=== PATIENT | female | born 1940 | race Caucasian/White ===

== ENCOUNTER 2018-12-29 07:32 | Day surgery (SDC) | payer MEDICARE ==
[2018-12-29] MEDS ORDERED: Lactated Ringers 1,000 ML IV SCH (08:30)
[2018-12-29] MEDS ORDERED: Propofol 200 MG/20 ML SDV ONE (09:16)
[2018-12-29] MEDS ORDERED: fentaNYL 100 MCG/2 ML SDV ONE (09:16)
[2018-12-29 10:53] VITALS: BP 159/58; PULSE 64
--- NOTE | 2018-12-29 11:07 | OR ---
DATE OF PROCEDURE: 12/29/2018 SURGEON: Curt Swan MD PREOPERATIVE DIAGNOSIS: History of colon polyps. POSTOPERATIVE DIAGNOSES: Diverticulosis, small colon polyp 30 cm from the anal verge, history of colon polyps. PROCEDURE: Colonoscopy to the cecum with biopsy resection of small polyp at 30 cm from the anal verge. SURGEON: Curt Swan MD. ANESTHESIA: IV anesthesia with monitored anesthesia care. INDICATION: This 78-year-old white female is referred for a colonoscopy because of a history of colon polyps. She says her last colonoscopic exam was done 5 years ago. I counseled her for the procedure including risks and alternatives, and she gave her informed consent to proceed. DESCRIPTION OF PROCEDURE: The patient was placed in the left lateral decubitus position. IV anesthesia was administered by the Anesthesia Service. Time-out was held. A rectal exam was performed, which was unremarkable. The flexible video Olympus colonoscope was introduced through her anus, up her rectum and out her colon all way to the cecum. Once the cecum was reached, the scope was slowly withdrawn examining the mucosa throughout. En route to the cecum, we did notice a few scattered left-sided diverticula. There was no bleeding or inflammation associated with any of them. The scope was withdrawn slowly from the cecum with no additional lesions noted until we reached 30 cm from the anal verge. Here, a small polyp was seen which was removed with the biopsy forceps. The scope was withdrawn further with no other lesions noted. The scope was retroflexed in the rectum with the distal rectum appearing unremarkable. The scope was straightened and removed. She tolerated the procedure well. Curt Swan MD /[id number]
== END 2018-12-29 10:57 | disposition home or self-care (01) ==
LOC: JP.SDS 07:32
PROVIDERS: ATTEND Surgery
DX: Z12.11 Encounter for screening for malignant neoplasm of colon (principal); D12.5 Benign neoplasm of sigmoid colon; K57.30 Diverticulosis of large intestine without perforation or abscess without bleeding; Z86.010 Personal history of colon polyps; I11.0 Hypertensive heart disease with heart failure; E03.9 Hypothyroidism, unspecified; Z79.82 Long term (current) use of aspirin; Z79.899 Other long term (current) drug therapy; Z91.09 Other allergy status, other than to drugs and biological substances
CPT/HCPCS: 45380; J2704; J3010; J7120; 88305

== ENCOUNTER 2023-07-25 11:40 | Inpatient (IN) | payer MEDICARE ==
[2023-07-25 12:25] LABS: BASE EXCESS VENOUS 1.8 mm/L; BICARBONATE,VENOUS 26.4 mmol/L; CARBOXYHEMOGLOBIN 2.2 % (0.0-1.6); METHEMOGLOBIN 0.7 %; O2 SATURATION VENOUS 60.8; PCO2 VENOUS 43.9 mm/Hg; PH,VENOUS 7.396 (7.350-7.450); PO2 VENOUS 35.5 mm/Hg; TOTAL HEMOGLOBIN 10.5 g/dL (12.0-16.0)
[2023-07-25 12:27] LABS: BASOPHILS ABSOLUTE AUTO 0.05 K/uL (0.00-0.10); BASOPHILS PERCENT AUTO 0.6 % (0.1-1.3); EOSINOPHILS ABSOLUTE AUTO 0.07 K/uL (0.00-0.40); EOSINOPHILS PERCENT AUTO 0.9 % (0.0-5.4); HEMOGLOBIN 9.9 g/dL (11.2-15.5); IMMATURE GRAN PERCENT AUTO 0.2 % (0.0-0.7); LYMPHOCYTES ABSOLUTE AUTO 0.77 K/uL (0.8-3.3); LYMPHOCYTES PERCENT AUTO 9.6 % (11.4-47.7); MEAN CORPUSCULAR HEMOGLOBIN 26.2 pg (31.6-35.5); MEAN CORPUSCULAR HGB CONC 31.9 g/dL (31.6-35.5); MONOCYTES PERCENT AUTO 13.6 % (3.3-12.6); NEUTROPHILS ABSOLUTE AUTO 6.05 K/uL (1.0-7.6); NEUTROPHILS PERCENT AUTO 75.1 % (40.0-78.1); PLATELET COUNT,PLT 290 K/uL (130-375); RED BLOOD CELL COUNT 3.78 M/uL (3.77-5.24); WHITE BLOOD CELL COUNT,WBC 8.1 K/uL (3.2-11.0)
[2023-07-25 12:29] LABS: IMMATURE GRAN ABSOLUTE AUTO 0.02 K/uL (0.00-0.23)
[2023-07-25] MEDS: cefTRIAXone 1 GM in Sodium Chloride 0.9% 50 ML IV ONE (12:46)
[2023-07-25 12:57] LABS: C-REACTIVE PROTEIN 6.43 mg/dL (<0.50); CALCIUM 8.2 mg/dL (8.5-10.1); CREATININE 0.7 mg/dL (0.6-1.0); EST CRCL DRUG DOSING (CG) 53.02 mL/min; POTASSIUM,K 3.8 mmol/L (3.6-5.2)
[2023-07-25 12:57] LABS: A/G RATIO 0.5 (1.2-2.2); ALBUMIN 2.3 g/dL (3.4-5.0); BILIRUBIN DIRECT 0.12 mg/dL (0.0-0.2); BILIRUBIN INDIRECT 0.18; BILIRUBIN TOTAL 0.3 mg/dL (0.2-1.0); PROTEIN TOTAL,TP 6.8 g/dL (6.4-8.2)
[2023-07-25 12:59] LABS: ANION GAP 12.8 mmol/L (5.0-14.0)
[2023-07-25 13:05] LABS: CORONAVIRUS COVID-19 NAA NEGATIVE (NEGATIVE); INFLUENZA A NAA NEGATIVE (NEGATIVE); INFLUENZA B NAA NEGATIVE (NEGATIVE); RESPIRATORY SYNCYTIAL VIR NAA NEGATIVE (NEGATIVE)
[2023-07-25] MEDS ORDERED: Sodium Chloride 0.9% 10 ML Syringe FLUSH PRN (13:37)
[2023-07-25] MEDS: Azithromycin 500 MG in Sodium Chloride 0.9% 250 ML IV ONE (13:55)
[2023-07-25] MEDS: Sodium Chloride 0.9% 10 ML Syringe FLUSH PRN (13:56)
[2023-07-25] MEDS: Iopamidol 755 Mg/ML 100 ML Bottle IV SCH (13:59)
[2023-07-25] MEDS: Sodium Chloride 0.9% 100 ML IV SCH (13:59)
[2023-07-25] MEDS ORDERED: Sennosides/Docusate Sodium 50-8.6 MG Tab PO PRN (17:21)
[2023-07-25] MEDS: Sodium Chloride 0.9% 1,000 ML IV SCH (18:07)
[2023-07-25] MEDS: Albuterol/Ipratropium 3.0-0.5 MG/3 ML Neb Soln NEB SCH (18:08)
[2023-07-25] MEDS: Formoterol/Mometasone 100-5 MCG 8.8 GM Inhaler IH SCH (20:55)
[2023-07-25] MEDS: Enoxaparin 40 MG/0.4 ML Syringe SUBCUT SCH (20:55)
[2023-07-25] MEDS: atorvaSTATin 10 MG Tab PO SCH (20:55)
[2023-07-25] MEDS: Lactobacillus Rhamnosus GG (Probiotic) Cap PO SCH (20:55)
[2023-07-25] MEDS ORDERED: Non-Formulary Medication 1 Each (Fluticasone/Salmeterol [Advair 100-50] 14 PUFF/DISKUS Dis INH SCH (21:00)
[2023-07-26] MEDS: Cetirizine 10 MG Tab PO SCH (09:20)
[2023-07-26] MEDS: Lisinopril 20 MG Tab PO SCH (09:20)
[2023-07-26] MEDS: Levothyroxine 100 MCG Tab PO SCH (09:20)
[2023-07-26] MEDS: Aspirin 81 MG Tab.Chew PO SCH (09:20)
[2023-07-26] MEDS: Multivitamins with Iron/Calcium/Folic Acid/Minerals Tab PO SCH (09:20)
[2023-07-26] MEDS: Potassium Chloride 20 MEQ Tab.ER PO ONE (11:45)
[2023-07-26] MEDS: Fluticasone NASAL Spray 16 GM Bottle NAS SCH (11:45)
[2023-07-26 13:14] LABS: ANION GAP 10.5 mmol/L (5.0-14.0); CREATININE 0.7 mg/dL (0.6-1.0); EST CRCL DRUG DOSING (CG) 53.02 mL/min; POTASSIUM,K 3.5 mmol/L (3.6-5.2)
[2023-07-26 13:15] LABS: HEMATOCRIT 29.8 % (34.3-46.0); HEMOGLOBIN 9.5 g/dL (11.2-15.5); MEAN CORPUSCULAR HEMOGLOBIN 26.5 pg (31.6-35.5); MEAN CORPUSCULAR HGB CONC 31.9 g/dL (31.6-35.5); RED BLOOD CELL COUNT 3.59 M/uL (3.77-5.24); WHITE BLOOD CELL COUNT,WBC 8.3 K/uL (3.2-11.0)
[2023-07-26] MEDS: Albuterol/Ipratropium 3.0-0.5 MG/3 ML Neb Soln NEB SCH (14:29)
[2023-07-26] MEDS: cefTRIAXone 1 GM in Sodium Chloride 0.9% 50 ML IV SCH (14:44)
[2023-07-26] MEDS: Azithromycin 250 MG Tab PO SCH (16:55)
[2023-07-27 05:27] LABS: BASOPHILS ABSOLUTE AUTO 0.03 K/uL (0.00-0.10); BASOPHILS PERCENT AUTO 0.4 % (0.1-1.3); EOSINOPHILS PERCENT AUTO 1.2 % (0.0-5.4); HEMATOCRIT 28.6 % (34.3-46.0); HEMOGLOBIN 9.1 g/dL (11.2-15.5); IMMATURE GRAN PERCENT AUTO 0.2 % (0.0-0.7); LYMPHOCYTES ABSOLUTE AUTO 0.55 K/uL (0.8-3.3); LYMPHOCYTES PERCENT AUTO 6.4 % (11.4-47.7); MEAN CORPUSCULAR HEMOGLOBIN 26.1 pg (31.6-35.5); MEAN CORPUSCULAR HGB CONC 31.8 g/dL (31.6-35.5); MEAN CORPUSCULAR VOLUME 82.2 fL (81.4-99.0); MONOCYTES ABSOLUTE AUTO 0.87 K/uL (0.20-0.90); MONOCYTES PERCENT AUTO 10.2 % (3.3-12.6); NEUTROPHILS ABSOLUTE AUTO 6.97 K/uL (1.0-7.6); NEUTROPHILS PERCENT AUTO 81.6 % (40.0-78.1); PLATELET COUNT,PLT 278 K/uL (130-375); RED BLOOD CELL COUNT 3.48 M/uL (3.77-5.24); WHITE BLOOD CELL COUNT,WBC 8.5 K/uL (3.2-11.0)
[2023-07-27 05:34] LABS: IMMATURE GRAN ABSOLUTE AUTO 0.02 K/uL (0.00-0.23)
[2023-07-27 05:45] LABS: CALCIUM 7.9 mg/dL (8.5-10.1); CREATININE 0.6 mg/dL (0.6-1.0); EST CRCL DRUG DOSING (CG) 61.86 mL/min; POTASSIUM,K 4.1 mmol/L (3.6-5.2)
[2023-07-27 05:48] LABS: ANION GAP 11.1 mmol/L (5.0-14.0)
[2023-07-28] MEDS: Albuterol 0.083% 2.5 MG/3 ML Neb Soln NEB PRN (02:40)
[2023-07-28 06:11] LABS: BASOPHILS ABSOLUTE AUTO 0.04 K/uL (0.00-0.10); BASOPHILS PERCENT AUTO 0.4 % (0.1-1.3); EOSINOPHILS PERCENT AUTO 0.1 % (0.0-5.4); HEMATOCRIT 30.1 % (34.3-46.0); HEMOGLOBIN 9.7 g/dL (11.2-15.5); IMMATURE GRAN ABSOLUTE AUTO 0.03 K/uL (0.00-0.23); IMMATURE GRAN PERCENT AUTO 0.3 % (0.0-0.7); LYMPHOCYTES ABSOLUTE AUTO 0.53 K/uL (0.8-3.3); MEAN CORPUSCULAR HEMOGLOBIN 26.5 pg (31.6-35.5); MEAN CORPUSCULAR HGB CONC 32.2 g/dL (31.6-35.5); MEAN CORPUSCULAR VOLUME 82.2 fL (81.4-99.0); MONOCYTES ABSOLUTE AUTO 0.58 K/uL (0.20-0.90); MONOCYTES PERCENT AUTO 5.5 % (3.3-12.6); NEUTROPHILS ABSOLUTE AUTO 9.36 K/uL (1.0-7.6); NEUTROPHILS PERCENT AUTO 88.7 % (40.0-78.1); PLATELET COUNT,PLT 307 K/uL (130-375); RED BLOOD CELL COUNT 3.66 M/uL (3.77-5.24); WHITE BLOOD CELL COUNT,WBC 10.6 K/uL (3.2-11.0)
[2023-07-28 06:18] LABS: EOSINOPHILS ABSOLUTE AUTO 0.01 K/uL (0.00-0.40)
[2023-07-28] MEDS: Benzonatate 100 MG Cap PO PRN (06:25)
[2023-07-28] MEDS: Codeine/guaiFENesin 10-100 MG/5 ML Syrup 5 ML Cup PO PRN (06:25)
[2023-07-28 06:28] LABS: CALCIUM 8.2 mg/dL (8.5-10.1); CREATININE 0.6 mg/dL (0.6-1.0); EST CRCL DRUG DOSING (CG) 61.86 mL/min
[2023-07-28] MEDS: Levofloxacin/Dextrose 5%-Water 750 MG in Premix Bag 1 BAG IV SCH (10:59)
[2023-07-28] MEDS: Meropenem 1 GM in Sodium Chloride 0.9% 100 ML IV SCH (13:18)
[2023-07-29 05:14] LABS: HEMATOCRIT 30.6 % (34.3-46.0); HEMOGLOBIN 9.8 g/dL (11.2-15.5); MEAN CORPUSCULAR HEMOGLOBIN 26.2 pg (31.6-35.5); MEAN CORPUSCULAR VOLUME 81.8 fL (81.4-99.0); RED BLOOD CELL COUNT 3.74 M/uL (3.77-5.24); WHITE BLOOD CELL COUNT,WBC 9.1 K/uL (3.2-11.0)
[2023-07-29 05:25] LABS: CALCIUM 8.1 mg/dL (8.5-10.1); CREATININE 0.6 mg/dL (0.6-1.0); EST CRCL DRUG DOSING (CG) 61.86 mL/min; POTASSIUM,K 3.9 mmol/L (3.6-5.2)
[2023-07-29 05:39] LABS: ANION GAP 7.9 mmol/L (5.0-14.0)
[2023-07-29] MEDS: predniSONE 20 MG Tab PO ONE (13:09)
[2023-07-29] MEDS: Metoprolol Tartrate 25 MG Tab PO SCH (15:02)
[2023-07-30 04:59] LABS: HEMATOCRIT 29.6 % (34.3-46.0); HEMOGLOBIN 9.7 g/dL (11.2-15.5); MEAN CORPUSCULAR HEMOGLOBIN 26.4 pg (31.6-35.5); MEAN CORPUSCULAR HGB CONC 32.8 g/dL (31.6-35.5); MEAN CORPUSCULAR VOLUME 80.4 fL (81.4-99.0); RED BLOOD CELL COUNT 3.68 M/uL (3.77-5.24); WHITE BLOOD CELL COUNT,WBC 7.4 K/uL (3.2-11.0)
[2023-07-30 05:18] LABS: C-REACTIVE PROTEIN 3.8 mg/dL (<0.50); CALCIUM 7.9 mg/dL (8.5-10.1); CREATININE 0.6 mg/dL (0.6-1.0); EST CRCL DRUG DOSING (CG) 61.86 mL/min; POTASSIUM,K 4.2 mmol/L (3.6-5.2)
[2023-07-30 05:31] LABS: ANION GAP 7.2 mmol/L (5.0-14.0)
[2023-07-30] MEDS: predniSONE 20 MG Tab PO SCH (07:44)
[2023-07-30] MEDS: Metoprolol Tartrate 25 MG Tab PO SCH (14:57)
[2023-07-31] MEDS: Metoprolol Succinate 50 MG Tab.ER PO SCH (10:44)
[2023-07-31] MEDS: Levofloxacin 250 MG Tab PO SCH (10:44)
[2023-07-31] MEDS ORDERED: Metoprolol Succinate 50 MG Tab.ER PO SCH (12:00)
[2023-08-01 05:10] LABS: HEMATOCRIT 30.4 % (34.3-46.0); HEMOGLOBIN 9.7 g/dL (11.2-15.5); MEAN CORPUSCULAR HEMOGLOBIN 26.1 pg (31.6-35.5); MEAN CORPUSCULAR HGB CONC 31.9 g/dL (31.6-35.5); MEAN CORPUSCULAR VOLUME 81.7 fL (81.4-99.0); RED BLOOD CELL COUNT 3.72 M/uL (3.77-5.24); WHITE BLOOD CELL COUNT,WBC 10.5 K/uL (3.2-11.0)
[2023-08-01 05:27] LABS: C-REACTIVE PROTEIN 1.18 mg/dL (<0.50); CALCIUM 7.7 mg/dL (8.5-10.1); CREATININE 0.5 mg/dL (0.6-1.0); EST CRCL DRUG DOSING (CG) 74.23 mL/min; POTASSIUM,K 4.3 mmol/L (3.6-5.2)
[2023-08-01 05:43] LABS: ANION GAP 4.3 mmol/L (5.0-14.0)
[2023-08-01] MEDS ORDERED: Sodium Chloride 0.9% 10 ML Syringe FLUSH PRN (14:19)
[2023-08-01] MEDS ORDERED: Sodium Chloride 0.9% 100 ML IV SCH (14:30)
[2023-08-01] MEDS ORDERED: Iopamidol 755 Mg/ML 100 ML Bottle IV SCH (14:30)
[2023-08-01] MEDS: Furosemide 20 MG/2 ML VIAL IVPUSH ONE (17:00)
[2023-08-02] MEDS: Acetaminophen 325 MG Tab PO PRN (07:14)
[2023-08-02] MEDS: Furosemide 20 MG/2 ML VIAL IVPUSH ONE ×2 (08:47→17:33)
[2023-08-02] MEDS: Apixaban 5 MG Tab PO SCH (13:54)
[2023-08-03 05:14] LABS: CALCIUM 7.3 mg/dL (8.5-10.1); CREATININE 0.6 mg/dL (0.6-1.0); EST CRCL DRUG DOSING (CG) 61.86 mL/min; POTASSIUM,K 3.6 mmol/L (3.6-5.2)
[2023-08-03 05:28] LABS: ANION GAP 3.6 mmol/L (5.0-14.0)
[2023-08-03] MEDS: Potassium Chloride 20 MEQ Tab.ER PO ONE (08:54)
[2023-08-03] MEDS: Furosemide 40 MG/4 ML VIAL IVPUSH ONE (14:13)
[2023-08-03] MEDS: Melatonin 3 MG Tab PO PRN (20:19)
[2023-08-04] MEDS: Furosemide 40 MG/4 ML VIAL IVPUSH ONE (09:16)
[2023-08-04] MEDS: Potassium Chloride 20 MEQ Tab.ER PO ONE (16:21)
[2023-08-04] MEDS: Diltiazem IR 30 MG Tab PO SCH (19:47)
[2023-08-05 05:09] LABS: CALCIUM 7.8 mg/dL (8.5-10.1); CREATININE 0.8 mg/dL (0.6-1.0); EST CRCL DRUG DOSING (CG) 46.4 mL/min; POTASSIUM,K 4.7 mmol/L (3.6-5.2)
[2023-08-05 05:12] LABS: ANION GAP 7.7 mmol/L (5.0-14.0)
[2023-08-05] MEDS: Furosemide 40 MG/4 ML VIAL IVPUSH ONE ×2 (09:04→15:46)
[2023-08-06 05:50] LABS: CALCIUM 7.8 mg/dL (8.5-10.1); CREATININE 0.7 mg/dL (0.6-1.0); EST CRCL DRUG DOSING (CG) 53.02 mL/min; POTASSIUM,K 3.9 mmol/L (3.6-5.2)
[2023-08-06 05:54] LABS: ANION GAP 7.9 mmol/L (5.0-14.0)
[2023-08-06] MEDS: Furosemide 40 MG/4 ML VIAL IVPUSH ONE (09:16)
[2023-08-06] MEDS: Diltiazem 120 MG Cap.CD PO SCH (17:07)
[2023-08-07] MEDS: Furosemide 40 MG/4 ML VIAL IVPUSH ONE (08:50)
[2023-08-07] MEDS: Ondansetron 4 MG Tab.DIS PO PRN (10:51)
[2023-08-07] MEDS: Magnesium Hydroxide 400 MG/5 ML Susp 30 ML Cup PO PRN (12:31)
[2023-08-07] MEDS ORDERED: Calcium Carbonate 500 MG Tab.Chew PO PRN (19:25)
[2023-08-07] MEDS: Pantoprazole 40 MG Tab.CR PO SCH (20:04)
[2023-08-08] MEDS: Furosemide 40 MG Tab PO SCH (08:08)
[2023-08-08] MEDS: Ondansetron 4 MG/2 ML SDV IV PRN (12:22)
[2023-08-08 21:27] LABS: BASOPHILS ABSOLUTE AUTO 0.05 K/uL (0.00-0.10); BASOPHILS PERCENT AUTO 0.4 % (0.1-1.3); EOSINOPHILS ABSOLUTE AUTO 0.29 K/uL (0.00-0.40); EOSINOPHILS PERCENT AUTO 2.1 % (0.0-5.4); HEMATOCRIT 25.3 % (34.3-46.0); HEMOGLOBIN 8.1 g/dL (11.2-15.5); IMMATURE GRAN ABSOLUTE AUTO 0.06 K/uL (0.00-0.23); IMMATURE GRAN PERCENT AUTO 0.4 % (0.0-0.7); LYMPHOCYTES ABSOLUTE AUTO 0.95 K/uL (0.8-3.3); LYMPHOCYTES PERCENT AUTO 6.7 % (11.4-47.7); MEAN CORPUSCULAR HEMOGLOBIN 26.6 pg (31.6-35.5); MEAN CORPUSCULAR VOLUME 83.2 fL (81.4-99.0); MONOCYTES PERCENT AUTO 11.3 % (3.3-12.6); NEUTROPHILS ABSOLUTE AUTO 11.15 K/uL (1.0-7.6); NEUTROPHILS PERCENT AUTO 79.1 % (40.0-78.1); PLATELET COUNT,PLT 247 K/uL (130-375); RED BLOOD CELL COUNT 3.04 M/uL (3.77-5.24); WHITE BLOOD CELL COUNT,WBC 14.1 K/uL (3.2-11.0)
[2023-08-08 21:40] LABS: ANION GAP 3.6 mmol/L (5.0-14.0); CREATININE 0.9 mg/dL (0.6-1.0); EST CRCL DRUG DOSING (CG) 41.24 mL/min; POTASSIUM,K 4.6 mmol/L (3.6-5.2)
[2023-08-09 04:41] LABS: BASOPHILS ABSOLUTE AUTO 0.05 K/uL (0.00-0.10); BASOPHILS PERCENT AUTO 0.4 % (0.1-1.3); EOSINOPHILS ABSOLUTE AUTO 0.42 K/uL (0.00-0.40); EOSINOPHILS PERCENT AUTO 2.9 % (0.0-5.4); HEMATOCRIT 24.4 % (34.3-46.0); HEMOGLOBIN 7.7 g/dL (11.2-15.5); IMMATURE GRAN ABSOLUTE AUTO 0.06 K/uL (0.00-0.23); IMMATURE GRAN PERCENT AUTO 0.4 % (0.0-0.7); LYMPHOCYTES PERCENT AUTO 4.9 % (11.4-47.7); MEAN CORPUSCULAR HEMOGLOBIN 26.4 pg (31.6-35.5); MEAN CORPUSCULAR HGB CONC 31.6 g/dL (31.6-35.5); MEAN CORPUSCULAR VOLUME 83.6 fL (81.4-99.0); MONOCYTES ABSOLUTE AUTO 1.57 K/uL (0.20-0.90); NEUTROPHILS ABSOLUTE AUTO 11.45 K/uL (1.0-7.6); NEUTROPHILS PERCENT AUTO 80.4 % (40.0-78.1); PLATELET COUNT,PLT 227 K/uL (130-375); RED BLOOD CELL COUNT 2.92 M/uL (3.77-5.24); WHITE BLOOD CELL COUNT,WBC 14.3 K/uL (3.2-11.0)
[2023-08-09 05:09] LABS: A/G RATIO 0.6 (1.2-2.2); ALANINE AMINOTRANSFERASE,ALT 16 U/L (12-78); ALBUMIN 2.1 g/dL (3.4-5.0); ALKALINE PHOSPHATASE 46 U/L (46-116); ASPARTATE AMNIOTRANSFERASE,AST 23 U/L (15-37); BILIRUBIN TOTAL 0.3 mg/dL (0.2-1.0); BLOOD UREA NITROGEN,BUN 30 mg/dL (7-18); CALCIUM 7.6 mg/dL (8.5-10.1); CARBON DIOXIDE,CO2 38 mmol/L (21-32); CHLORIDE,CL 100 mmol/L (100-108); CREATININE 0.8 mg/dL (0.6-1.0); ESTIMATED GFR 74 mL/min (>60); GLUCOSE RANDOM 95 mg/dL (74-106); PHOSPHORUS 4.3 mg/dL (2.5-4.9); POTASSIUM,K 4.3 mmol/L (3.6-5.2); PROTEIN TOTAL,TP 5.8 g/dL (6.4-8.2); SODIUM,NA 137 mmol/L (140-148)
[2023-08-09 05:12] LABS: IRON,FE 26 ug/dL (50-170); PERCENT FE SATURATION 14 % (20-55); TOTAL IRON BINDING CAPACITY 183 ug/dl (250-450)
[2023-08-09 05:23] LABS: ANION GAP 3.3 mmol/L (5.0-14.0)
[2023-08-09 11:23] VITALS: BP 103/35; PULSE 71
== END 2023-08-09 14:15 | DRG 193 ==
LOC: JP.ED 11:40 → JP.MS 15:40
PROVIDERS: ADMIT Internal Medicine; ATTEND Hospitalist
DX: J18.9 Pneumonia, unspecified organism (principal); I26.93 Single subsegmental thrombotic pulmonary embolism without acute cor pulmonale; J96.01 Acute respiratory failure with hypoxia; R09.02 Hypoxemia; I26.99 Other pulmonary embolism without acute cor pulmonale; R91.8 Other nonspecific abnormal finding of lung field; R79.89 Other specified abnormal findings of blood chemistry; J90 Pleural effusion, not elsewhere classified; J44.0 Chronic obstructive pulmonary disease with (acute) lower respiratory infection; C34.91 Malignant neoplasm of unspecified part of right bronchus or lung; H91.90 Unspecified hearing loss, unspecified ear; E78.00 Pure hypercholesterolemia, unspecified; F17.200 Nicotine dependence, unspecified, uncomplicated; Z91.048 Other nonmedicinal substance allergy status; I10 Essential (primary) hypertension; M19.90 Unspecified osteoarthritis, unspecified site; I48.0 Paroxysmal atrial fibrillation; K21.9 Gastro-esophageal reflux disease without esophagitis; E03.9 Hypothyroidism, unspecified; M81.0 Age-related osteoporosis without current pathological fracture; Z66 Do not resuscitate; Z86.010 Personal history of colon polyps; Z79.82 Long term (current) use of aspirin; Z79.899 Other long term (current) drug therapy; Z79.51 Long term (current) use of inhaled steroids; Z79.890 Hormone replacement therapy; Z88.8 Allergy status to other drugs, medicaments and biological substances; Z98.49 Cataract extraction status, unspecified eye; Z98.890 Other specified postprocedural states
CPT/HCPCS: 0241U; 36415; 51701; 51798; 71045; 71046; 71275; 80048; 80053; 80076; 82803; 83550; 83605; 83880; 84100; 84145; 84484; 85025; 85027; 85379; 86140; 86850; 86900; 86901; 93005; 93010; 93970; 94640; 94667; 94668; 96365; 96367; 97110; 97161; 97530; 99285; A9270-GY; C1758; J0456; J0696; J1650; J1940; J1956; J2185; J2405; J3490; J7030; J7050; J7512; J7620; Q0162; Q9967